=== PATIENT | female | born 1995 | race Hispanic/Latino ===

== ENCOUNTER 2022-11-06 08:06 | Emergency (ER) | payer SELFPAY ==
[~2022-11-06] VITALS: Ht 162.6 cm; Wt 47.6 kg
[2022-11-06] VITALS (15 sets, daily range): BP systolic 83–112; BP diastolic 45–71
[~2022-11-06 08:06] MED LIST: CIPROFLOXACN250 MG PO; LORTAB 10-325 M1 TAB PO
[2022-11-06 09:17] LABS: HEMATOCRIT 31.8 % (37.0-47.0); HEMOGLOBIN 10.9 g/dl (12.0-16.0); IMMATURE GRANULOCYTES 0.1 % (0.0-5.0); MEAN CELL VOLUME 88.6 fL CALC (80.0-100.0); MEAN CORPUSCULAR HGB 30.4 pG CALC (26.0-32.0); MEAN CORPUSCULAR HGB CONC 34.3 g/dL CAL (32.0-36.0); NEUT# 6.26 thou/uL (2.00-7.15); RED BLOOD COUNT 3.59 mill/uL (4.20-5.60); RED CELL DISTRI WIDTH 13.2 % (11.5-15.5)
[2022-11-06 09:19] LABS: URINE BILIRUBIN - DIPSTICK NEGATIVE (NEGATIVE); URINE BLOOD DIPSTICK TRACE-INTACT (NEGATIVE); URINE COLOR YELLOW; URINE GLUCOSE - DIPSTICK NEGATIVE (NEGATIVE); URINE KETONE 40 mg/dL (NEGATIVE); URINE PROTEIN - DIPSTICK NEGATIVE (NEG-TRACE)
[2022-11-06 09:20] LABS: URINE LEUK ESTERASE SMALL (NEGATIVE); URINE NITRITE - DIPSTICK NEGATIVE (Negative)
[2022-11-06 09:27] LABS: ALBUMIN 4.3 g/dL (3.2-5.0); ALKALINE PHOSPHATASE 38 u/l (38-126); ANION GAP 12 (6-22 (CALC)); BILIRUBIN, TOTAL 0.8 mg/dL (0.0-1.4); BUN 9 mg/dL (7-17); BUN/CREATININE RATIO 16 (12-20 (CALC)); CARBON DIOXIDE 22 mmol/l (22-30); CHLORIDE 106 mmol/l (95-108); CREATININE 0.5 mg/dL (0.5-1.0); GFR FOR AFR.AMER. > 60 ML/MIN (>=60 (CALC)); GFR OTHER RACES > 60 ML/MIN (>=60 (CALC)); POTASSIUM 4.1 mmol/l (3.5-5.1); SGOT/AST 17 u/l (14-36); SODIUM 137 mmol/l (137-146)
[2022-11-06 09:32] LABS: URINE RBC 0-2 RBC/hpf (0-5); URINE SQUAMOUS EPITHELIAL CELL MANY EPI/hpf (0-FEW)
[2022-11-06 09:33] LABS: URINE AMORPH SEDIMENT MANY hpf (NONE-FEW); URINE BACTERIA MANY hpf
[2022-11-06 10:12] LABS: BETA-HCG, QUANT(RESULT NUMBER) 67102 mIU/mL
[2022-11-06] MEDS ORDERED: ZOFRAN4 MG/TAB PO (10:47)
== END 2022-11-06 12:30 | disposition home or self-care (01) | DRG 833 ==
LOC: ED 08:06
PROVIDERS: Family Medicine
DX: O21.9 Vomiting of pregnancy, unspecified (principal)

== ENCOUNTER 2025-01-05 09:02 | Emergency (ER) | payer SELFPAY ==
[2025-01-05] VITALS (7 sets, daily range): BP systolic 94–138; BP diastolic 65–98
[~2025-01-05] VITALS: Ht 162.6 cm; Wt 61.0 kg
[~2025-01-05 09:02] MED LIST changes: +ZOFRAN4 MG/TAB PO
[2025-01-05 09:42] LABS: BASO% 0.8 % (0-3); EOS% 10.6 % (0-8); HEMATOCRIT 35.8 % (37.0-47.0); HEMOGLOBIN 11.3 g/dl (12.0-16.0); IMMATURE GRANULOCYTES 0.7 % (0.0-5.0); LYMPH% 28.8 % (15-41); MEAN CORPUSCULAR HGB 30.7 pG CALC (26.0-32.0); MEAN CORPUSCULAR HGB CONC 31.6 g/dL CAL (32.0-36.0); MONO% 8.8 % (2-13); NEUT# 3.64 thou/uL (2.00-7.15); NEUT% 50.3 % (42-76); RED BLOOD COUNT 3.68 mill/uL (4.20-5.60); RED CELL DISTRI WIDTH 11.6 % (11.5-15.5)
[2025-01-05 09:48] LABS: MEAN CELL VOLUME 97.3 fL CALC (80.0-100.0)
[2025-01-05 10:02] LABS: ALBUMIN 3.9 g/dL (3.2-5.0); CREATININE 0.6 mg/dL (0.5-1.0); POTASSIUM 4.1 mmol/l (3.5-5.1); TOTAL PROTEIN 6.9 g/dL (6.3-8.2)
[2025-01-05 10:03] LABS: BILIRUBIN, TOTAL 0.4 mg/dL (0.02-1.3)
== END 2025-01-05 12:33 | disposition home or self-care (01) | DRG 779 ==
LOC: ED 09:02
PROVIDERS: Family Medicine
DX: O03.9 Complete or unspecified spontaneous abortion without complication (principal)